=== PATIENT | female | born 1955 | race Caucasian/White ===

== ENCOUNTER 2020-09-16 11:00 | Emergency (ER) | payer OTHER, MEDICARE, SELFPAY ==
--- NOTE | ~2020-09-16 | XR_ITS ---
XR chest 1V DATE: 09/16/2020 12:21 INDICATION: Transient alteration of awareness TECHNIQUE: AP projection COMPARISON: None FINDINGS: Heart size appears within normal range. No hilar or mediastinal enlargement. No pulmonary infiltrate or consolidation, pleural effusion or pulmonary vascular congestion or pneumo thorax. Diffuse osteopenia. IMPRESSION: No active pulmonary disease Reviewed, dictated and finalized at location A. IMPRESSION: No active pulmonary disease
--- NOTE | ~2020-09-16 | CT_ITS ---
EXAMINATION: CT brain wo con DATE: 09/16/2020 12:15 INDICATION: Confusion TECHNIQUE: Computed tomography (CT) of the head was performed without intravenous contrast. Sagittal and coronal reconstructions were performed. The mA was adjusted according to patient size. Iterative reconstruction technique was employed. The dose-length product was 605.33 mGy-cm. COMPARISON: None FINDINGS: No acute intracranial hemorrhage, acute infarction or abnormal extra axial fluid collection. There is mild scattered white matter hypoattenuation consistent with chronic small vessel ischemic disease. S ymmetric prominence of the sulci and ventricles consistent with mild age-appropriate diffuse cerebral volume loss. No mass/mass effect. Changes of bilateral intraocular lens replacement. The orbits, par anasal sinuses and mastoid air cells are normal. IMPRESSION: 1. . No acute intracranial process. 2. Age-related changes including mild diffuse volume loss and mild scattered white matter hypoattenua tion consistent with chronic small vessel ischemic disease. Reviewed, dictated and finalized at location A. IMPRESSION: 1. . No acute intracranial process. 2. Age-related changes including mild diffuse volume loss and mild scattered wh ite matter hypoattenuation consistent with chronic small vessel ischemic diseas e.
[2020-09-16 11:07] VITALS: BP 125/67; PULSE 66; RESP 15; TEMP 37.1; O2SAT 100
--- NOTE | 2020-09-16 11:14 | PC.NURSE ---
Pt can state her name Salima but cannot recall last name or age Per medics when they placed pulse ox on her pt stated that is what the lady at home does Pt says she has a sister named Yani and has children but cannot remember their names No trauma noted on exam, pt ambulates steady gait. [place] scale negative, clear speech. Non-labored respirations, NSR
--- NOTE | 2020-09-16 11:18 | ECG_ITS ---
Measurements Intervals [place] Rate: 63 P: 68 MI: 165 QRS: 72 QRSD: 129 T: 42 QT: 381 QTc: 390 Interpretive Statements SINUS RHYTHM WITH SINUS ARRHYTHMIA RIGHT BUNDLE BRANCH BLOCK BASELINE ARTIFACT- II, III, AVR, AVF, V1, V3-V6 ABNORMAL ECG Electronically Signed On 09-16-2020 11:52:49 CDT by Fantasma Lemon D.O.
--- NOTE | 2020-09-16 11:23 | ED.AMS ---
HPI - Altered Mental Status General Chief Complaint: Altered Mental Status Stated Complaint: AMS Time Seen by Provider: 09/16/20 11:10 Source: EMS and RN notes reviewed Mode of arrival: EMS Limitations: altered mental status History of Present Illness HPI narrative: Patient is 65 years old white female brought to the emergency room by ambulance because she was walking at the side of the road, confused. On arrival to the emergency room patient is asymptomatic, telling me that her name is Salima otherwise does not remember anything recent or remote. Patient denies any fever, chills, nausea, vomiting, chest pain, shortness of breath, back pain, headache, abdominal pain or any other symptoms. Related Data Home Medications Medication Instructions Recorded Confirmed donepezil 10 mg tablet 10 mg PO ONCE 06/23/20 07/07/20 escitalopram oxalate 10 mg tablet 10 mg PO DAILY 06/23/20 07/07/20 multivitamin 1 tablet PO DAILY 06/23/20 07/07/20 Allergies Allergy/AdvReac Type Severity Reaction Status Date / Time No Known Allergies Allergy Unverified 06/23/20 16:02 Review of Systems Review of Systems: ROS unobtainable: Yes unobtainable due to medical condition PMFSH Past Medical History Medical History (Updated 09/16/20 @ 12:31 by Matthew Onofre MD) Encounter for end of life education, guidance and counseling Surgical History Surgical History History of cataract surgery (~2013) Family History Family History Father , age 88 Cerebrovascular accident Leukemia Migraine Mother , age 94 Dementia Cerebrovascular accident Alzheimer's disease Hypertension Sibling Migraine Grandparent Migraine Alcoholism Social History Social History Smoking status: Never smoker Alcohol intake: never Exam Narrative: Exam Narrative: General appearance: Well-developed, well-nourished, no family member at the bedside Skin: Normal color Head: Normocephalic, nontraumatic Eyes: Clear conjunctiva ENT: Oropharynx normal, ears normal, nose normal Neck: Supple, nontender Chest and respiratory: Airway patent, no respiratory distress, no accessory muscle use Heart: Regular rate/rhythm Abdomen: Soft, nontender, no organomegaly, quiet bowel sounds Vascular: Normal peripheral pulses, normal capillary refill. Musculoskeletal: Normal range of motion, nontender back Neurologic: Alert, oriented to her name only otherwise have recent and remote amnesia Course Course Emergency Course: Stable Reevaluation(s) Reevaluation #1: Patient still asymptomatic. Patient's daughter came to the emergency room later and told me that patient had history of Alzheimer's disease and that is her normal pace. And last time was seen by her daughter was yesterday. Patient's son-in-law supposed to come to watch her MD today but he was busy at work for a meeting, and was late 1-1/2-hour. During this. Time patient was able to manage to leave the house and wandered around. Vital Signs Vital signs: Vital Signs Temperature 37.1 C 09/16/20 11:07 Pulse Rate 66 09/16/20 11:07 Respiratory Rate 15 09/16/20 11:07 Blood Pressure 125/67 09/16/20 11:07 Pulse Oximetry 100 09/16/20 11:07 Temperature 37.1 C 09/16/20 11:07 Pulse Rate 66 09/16/20 11:07 Respiratory Rate 15 09/16/20 11:07 Blood Pressure 125/67 09/16/20 11:07 Pulse Oximetry 100 09/16/20 11:07 MDM - Altered Mental Status MDM Narrative Medical decision making narrative: Patient probably have a history of dementia an
--- NOTE | 2020-09-16 12:04 | PC.NURSE ---
found pt's house and called first contact on cellphone daughter Eva Urrutia [phone], states she has never wandered before, pt established at [facility] for Alzheimer's studies. Pt lives in her home in [place], [place] and daughter/KEVYN take care of her during the day, [facility] comes twice a week to check on her
[2020-09-16 12:08] LABS: Basophils Percent Auto 0.2 % (0.2-1.2); Eosinophils Absolute Auto 0.1 K/mm3 (0-0.3); Eosinophils Percent Auto 0.9 % (0-4.4); Hematocrit 44.3 % (37.0-47.0); Hemoglobin 14.1 g/dL (12.0-15.0); Immature Granulocyte Absolute 0.01 K/mm3 (0.00-0.031); Immature Granulocyte Percent A 0.2 % (0-0.5); Lymphocytes Absolute Auto 0.94 K/mm3 (0.9-3.2); Lymphocytes Percent Auto 17.5 % (18.3-44.2); Mean Corpuscular HGB Conc 31.8 g/dl (32-36); Mean Corpuscular Hemoglobin 30.7 pg (26-34); Mean Corpuscular Volume 96.3 fl (80-100); Mean Platelet Volume 10.8 fl (7.4-10.4); Monocytes Absolute Auto 0.5 K/mm3 (0.1-0.6); Monocytes Percent Auto 8.8 % (2.6-8.5); Neutrophils Absolute Auto 3.9 K/mm3 (1.3-6.7); Neutrophils Percent Auto 72.4 % (45.5-73.1); Platelet Count Result 205 k/mm3 (150-375); Red Cell Distribution Width 13.1 % (11.5-14.5); White Blood Count 5.4 K/mm3 (4.5-10.0)
[2020-09-16 12:17] LABS: INR 0.9; Prothrombin Time 12.7 Seconds (11.1-14.7)
[2020-09-16 12:18] LABS: Partial Thromboplastin Time 23.2 SECONDS (22.3-36.8)
[2020-09-16 12:19] LABS: Ethanol < 10 mg/dL (<10)
--- NOTE | 2020-09-16 12:30 | PC.NURSE ---
Dr Onofre at bedside to speak with daughter. Daughter states her will stay with pt all day and she is in a safe place. Daughter will f/u with pt's PCP and neuro
[2020-09-16 13:05] VITALS: BP 120/71; PULSE 67; RESP 17; O2SAT 98
== END 2020-09-16 13:07 | disposition home or self-care (01) ==
PROVIDERS: Emergency Provider Emergency Medicine; PCP Family Medicine
DX: G30.9 Alzheimer's disease, unspecified (principal); F02.80 Dementia in other diseases classified elsewhere, unspecified severity, without behavioral disturbance, psychotic disturbance, mood disturbance, and anxiety; I45.10 Unspecified right bundle-branch block; Z98.49 Cataract extraction status, unspecified eye; Z79.899 Other long term (current) drug therapy
CPT/HCPCS: 36415; 70450; 71045; 80307; 85025; 85610; 85730; 93005; 99284